=== PATIENT | female | born 1995 | race Caucasian/White ===

== ENCOUNTER 2016-09-06 23:13 | Emergency (ER) | payer OTHER ==
--- NOTE | 2016-09-06 23:28 | PDOC ---
History of Present Illness - General History Source: Patient Exam Limitations: No Limitations - History of Present Illness Initial Comments: 09/07/16 00:34 The patient is a 21-year-old female with a significant past medical history of multiple syncopal episodes and vertigo, and presents to the emergency department with dizziness and pain to the head for 3 days. She reports that the head pain is progressively worsening, localized to the back of the head and neck , and is sharp in nature. She reports a mild headache. She states that she has recently moved. She denies any trauma. The patient denies chest pain, shortness of breath, and palpitations. The patient denies fever, chills, nausea, vomit, diarrhea and constipation. The patient denies dysuria, frequency, urgency and hematuria. Allergies: penicillins Social History: Denies smoking, ETOH, or substance use. <Quin Castle - Last Filed: 09/07/16 00:34> <Tayla Sheridan - Last Filed: 09/07/16 03:45> - General Stated Complaint: DIZZINESS Time Seen by Provider: 09/06/16 23:27 Past History <Quin Castle - Last Filed: 09/07/16 00:34> - Immunization History Immunization Up to Date: Yes - Psycho/Social/Smoking Cessation Hx Anxiety: No Suicidal Ideation: No Smoking History: Never smoked Have you smoked in the past 12 months: No Hx Alcohol Use: No Drug/Substance Use Hx: No Substance Use Type: None <Tayla Sheridan - Last Filed: 09/07/16 03:45> - Past Medical History Allergies/Adverse Reactions: Allergies Allergy/AdvReac Type Severity Reaction Status Date / Time Penicillins Allergy Verified 09/06/16 23:40 Home Medications: Ambulatory Orders NK [No Known Home Medication] 08/19/15 Review of Systems - Review of Systems Able to Perform ROS?: Yes Comments:: 09/07/16 00:35 CONSTITUTIONAL: Absent: fever, chills, diaphoresis, generalized weakness, malaise, loss of appetite HEENT: Absent: rhinorrhea, nasal congestion, throat pain, throat swelling, difficulty swallowing, mouth swelling, ear pain, eye pain, visual Changes CARDIOVASCULAR: Absent: chest pain, syncope, palpitations, irregular heart rate, peripheral edema RESPIRATORY: Absent: cough, shortness of breath, dyspnea with exertion, orthopnea, wheezing, stridor, hemoptysis GASTROINTESTINAL: Absent: abdominal pain, abdominal distension, nausea, vomiting, diarrhea, constipation, melena, hematochezia GENITOURINARY: Absent: dysuria, frequency, urgency, hesitancy, hematuria, flank pain, genital pain MUSCULOSKELETAL: Absent: myalgia, arthralgia, joint swelling SKIN: Absent: rash, itching, pallor HEMATOLOGIC/IMMUNOLOGIC: Absent: easy bleeding, easy bruising, lymphadenopathy, frequent infections ENDOCRINE: Absent: unexplained weight gain, unexplained weight loss, heat intolerance, cold intolerance NEUROLOGIC: Present: (+) headache, (+) dizziness, (+) pain to the back of head and neck Absent: focal weakness or paresthesias, unsteady gait, seizure, mental status changes, bladder or bowel incontinence PSYCHIATRIC: Absent: anxiety, depression, suicidal or homicidal ideation, hallucinations. <Quin Castle - Last Filed: 09/07/16 00:34> *Physical Exam - Vital Signs Last Vital Signs Temp Pulse Resp BP Pulse Ox 98.5 F 74 18 108/64 98 09/06/16 23:40 09/06/16 23:40 09/06/16 23:40 09/06/16 23:40 09/06/16 23:40 - Physical Exam Comments: 09/07/16 00:35 GENERAL: Well developed, well nourished. Awake and alert. No acute distress. HEENT: Normocephalic, atraumatic. PERRLA, EOMI. No conjunctival pallor. Sclera are non- icteric. Moist mucous membranes. Oropharynx is clear. NECK: Supple. Full ROM. No JVD. Carotid pulses 2+ and symmetric, without bruits. No thyromegaly. No lymphadenopathy. CARDIOVASCULAR: Regular rate and rhythm. No murmurs, rubs, or gallops. Distal pulses are 2+ and symmetric. PULMONARY: No evidence of respiratory distress. Lungs clear to auscultation bilaterally. No wheezing, rales or rhonchi. ABDOMINAL: Soft. Non-tender. Non-distended. No rebound or guarding. No organomegaly. Normoactive bowel sounds. MUSCULOSKELETAL Normal range of motion at all joints. No bony deformities or tenderness. No CVA tenderness. EXTREMITIES: No cyanosis. No clubbing. No edema. No calf tenderness. SKIN: Warm and dry. Normal capillary refill. No rashes. No jaundice. NEUROLOGICAL: Alert, awake, appropriate. Cranial nerves 2-12 intact. No deficits to light touch and temperature in face, upper extremities and lower extremities. No motor deficits in the in face, upper extremities and lower extremities. Normoreflexic in the upper and lower extremities. Normal speech. Toes are down- going bilaterally. Gait is normal without ataxia. PSYCHIATRIC: Cooperative. Good eye contact. Appropriate mood and affect. <Quin Castle - Last Filed: 09/07/16 00:34> ED Treatment Course - Medications Given in the ED: ED Medications Discontinued Medications Generic Name Dose Route Start Last Admin Trade Name Freq PRN Reason Stop Dose Admin Diphenhydramine HCl 50 mg 09/06/16 23:52 09/07/16 00:21 Benadryl Injection - IVPB 09/06/16 23:53 50 mg ONCE ONE Administration Ketorolac Tromethamine 30 mg 09/06/16 23:52 09/07/16 00:21 Toradol Injection - IVPUSH 09/06/16 23:53 30 mg ONCE ONE Administration <Quin Castle - Last Filed: 09/07/16 00:34> - LABORATORY CBC & Chemistry Diagram: 09/07/16 00:15 09/07/16 00:15 <Tayla Sheridan - Last Filed: 09/07/16 03:45> Medical Decision Making - Medical Decision Making 09/07/16 03:30 ient Name: Ebony Luo THIS IS A PRELIMINARY REPORT FROM [facility] [employer] TECHNICIAN EXAM: CT head/brain without contrast IMAGES: [id number] EXAM DATE AND TIME: 2016-09-07 02:50:36.0 REASON FOR EXAM: 21 year-old woman with occipital pain. Dizziness. COMPARISON: Prior Head CT conducted on: 09/12/2015. FINDINGS: The sulci and ventricles are normal in size. There are no intracranial hemorrhages, extra-axial fluid collections or evidence of an intra-axial mass lesion. Orbital and petrous structures, cerebellopontine angles, and posterior fossa appear unremarkable. There is a mucous retention cyst within the left maxillary sinus. The paranasal and mastoid sinuses are clear. IMPRESSION: Maxillary sinus mucous retention cyst. The study is otherwise unremarkable. .THIS DOCUMENT HAS BEEN ELECTRONICALLY SIGNED Jung Reyes MD. 09/07/16 03:40 Pt understands that she may have increased CSF production and ICP which may lead to blindness and that the only way to diagnose this is with spinal tap. Pt is refusing spinal tap/LP at this time. I explained to her that if dizziness and FAYE persist, she must follow with neurology and she ught to follow through with a lumbar puncture to make sure ICP is normal. Pt wants to go home. Labs normal. CT head normal. Pt is feeling better <Tayla Sheridan - Last Filed: 09/07/16 03:45> *DC/Admit/Observation/Transfer - Attestations Scribe Attestion: 09/07/16 00:36 Documentation prepared by Quin Castle, acting as medical office receptionist assistant for Tayla Sheridan MD. <Quin Castle - Last Filed: 09/07/16 00:34> - Discharge Dispostion Admit: No <Tayla Sheridan - Last Filed: 09/07/16 03:45> Diagnosis at time of Disposition: Headache, Dizziness - Discharge Dispostion Disposition: HOME Condition at time of disposition: Improved - Referrals Referrals: Lo Colindres MD [Primary Care Provider] - Igor Coppola MD [Staff Physician] - - Patient Instructions Printed Discharge Instructions: DI for Headache, Dizziness, Nonvertigo
[2016-09-06 23:45] VITALS: BP 108/64; PULSE 74; TEMP 98.5; BMI 26.6
[2016-09-06] MEDS ORDERED: KETOROLAC TROMETHAMINE 30 MG/1 ML VIAL IVPUSH ONE (23:52)
[2016-09-07] MEDS ORDERED: KETOROLAC TROMETHAMINE 30 MG/1 ML VIAL ONE (00:14)
[2016-09-07] MEDS ORDERED: METOCLOPRAMIDE HCL INJECTION 10 MG/2 ML VIAL IVPB ONE (00:28)
[2016-09-07] MEDS ORDERED: METOCLOPRAMIDE HCL INJECTION 10 MG/2 ML VIAL ONE (00:56)
[2016-09-07 01:08] LABS: BASOPHIL 0.5 % (0-2.0); EOSINOPHIL 1.2 % (0-4.5); MCH 28.6 pg (25.7-33.7); MCHC 32.5 g/dl (32.0-36.0); MEAN PLT VOLUME 8.5 fl (7.5-11.1); NEUTROPHILS 60.3 % (42.8-82.8); PLATELET COUNT 314 K/MM3 (134-434); RDW 13.1 % (11.6-15.6); WHITE BLOOD COUNT 7.7 K/mm3 (4.0-10.0)
[2016-09-07 01:26] LABS: INR 1.08 (0.82-1.09); PROTHROMBIN TIME (PATIENT) 11.9 SEC (9.98-11.88)
[2016-09-07 01:58] LABS: URINE APPEARANCE CLOUDY; URINE BILIRUBIN NEGATIVE (NEGATIVE); URINE COLOR YELLOW; URINE GLUCOSE (UA) NEGATIVE (NEGATIVE); URINE KETONE NEGATIVE (NEGATIVE); URINE NITRITE NEGATIVE (NEGATIVE); URINE PROTEIN NEGATIVE (NEGATIVE); URINE UROBILINOGEN 2.0 E.U/dl E.U./dl (0.2-1.0)
[2016-09-07 02:00] LABS: ANION GAP 9 (8-16); CALCIUM 9.1 mg/dL (8.5-10.1); CO2 30 mmol/L (21-32); CREATININE 0.8 mg/dL (0.55-1.02); GLUCOSE,RANDOM 77 mg/dL (74-106); SGPT/ALT 44 U/L (12-78)
[2016-09-07 02:01] LABS: ALK PHOS 65 U/L (45-117); BILIRUBIN,TOTAL 0.3 mg/dL (0.2-1.0); TOT PROT 7.3 g/dl (6.4-8.2)
[2016-09-07 02:01] LABS: URINE BLOOD 1+ (NEGATIVE); URINE LEUK ESTERASE TRACE (NEGATIVE)
[2016-09-07 02:04] LABS: URINE BACTERIA RARE /hpf (NONE SEEN); URINE MUCUS MODERATE; URINE RBC 4 /hpf (0-3)
[2016-09-07 02:06] LABS: SGOT/AST 25 U/L (15-37)
== END 2016-09-07 03:58 | disposition home or self-care (01) ==
LOC: JER 23:13
PROC: 3E0333Z Introduction of Anti-inflammatory into Peripheral Vein, Percutaneous Approach (ICD-10-PCS; principal; 2016-09-06)
PROC: 3E033GC Introduction of Other Therapeutic Substance into Peripheral Vein, Percutaneous Approach (ICD-10-PCS; 2016-09-06)
DX: R51 Headache (principal); R42 Dizziness and giddiness
CPT/HCPCS: 36415; 70450-TC; 80053; 81003; 81015; 84703; 85025; 85610; 85730; 96374; 96375; 99282-25

== ENCOUNTER 2016-10-01 21:36 | Emergency (ER) | payer OTHER ==
[2016-10-01 22:03] VITALS: BP 133/61; PULSE 79; TEMP 97.9; BMI 25.8
[2016-10-01 22:18] LABS: URINE APPEARANCE CLOUDY; URINE BILIRUBIN NEGATIVE (NEGATIVE); URINE COLOR DKYELLOW; URINE GLUCOSE (UA) NEGATIVE (NEGATIVE); URINE KETONE NEGATIVE (NEGATIVE); URINE NITRITE NEGATIVE (NEGATIVE); URINE UROBILINOGEN NEGATIVE E.U./dl (0.2-1.0)
[2016-10-01 22:24] LABS: URINE BLOOD 2+ (NEGATIVE); URINE LEUK ESTERASE 3+ (NEGATIVE); URINE PROTEIN 1+ (NEGATIVE)
--- NOTE | 2016-10-01 22:24 | PDOC ---
History of Present Illness - General Chief Complaint: Urinary Problem Stated Complaint: R/O U.T.I. Time Seen by Provider: 10/01/16 21:59 History Source: Patient Exam Limitations: No Limitations - History of Present Illness Travel History: No Initial Comments: 10/01/16 22:18 21 yr female with c/o 2-3 weeks painful urination, frequency and fould smelling. no fever no flank or back pain or vomiting. Past History - Past Medical History Allergies/Adverse Reactions: Allergies Allergy/AdvReac Type Severity Reaction Status Date / Time Penicillins Allergy Verified 10/01/16 21:54 Home Medications: Ambulatory Orders Norgestimate-Ethinyl Estradiol [Sprintec 28 Day Tablet] 1 each PO DAILY Phenazopyridine HCl [Azo Urinary Pain Relief] 97.5 mg PO TID #9 tablet 10/01/16 Sulfamethoxazole/Trimethoprim [Bactrim Ds Tablet] 1 each PO BID #14 tablet 10/01 Other medical history: VERTIGO - Immunization History Immunization Up to Date: Yes - Psycho/Social/Smoking Cessation Hx Anxiety: No Suicidal Ideation: No Smoking History: Never smoked Have you smoked in the past 12 months: No Number of Cigarettes Smoked Daily: 0 Information on smoking cessation initiated: No Hx Alcohol Use: No Drug/Substance Use Hx: No Substance Use Type: None *Physical Exam - Vital Signs Last Vital Signs Temp Pulse Resp BP Pulse Ox 97.9 F 79 14 133/61 98 10/01/16 21:56 10/01/16 21:56 10/01/16 21:56 10/01/16 21:56 10/01/16 21:56 - Physical Exam General Appearance: Yes: Nourished, Appropriately Dressed HEENT: positive: EOMI, RUSSEL, TMs Normal, Pharynx Normal Neck: positive: Supple Respiratory/Chest: positive: Lungs Clear, Normal Breath Sounds Cardiovascular: positive: Regular Rhythm, Regular Rate Gastrointestinal/Abdominal: positive: Normal Bowel Sounds, Soft, Tenderness ( suprapubic). negative: Tender Musculoskeletal: positive: Normal Inspection. negative: CVA Tenderness (R), CVA Tenderness (L) Extremity: positive: Normal Inspection, Normal Range of Motion Integumentary: positive: Normal Color, Dry, Warm Neurologic: positive: Fully Oriented, Alert, Normal Mood/Affect, Normal Response , Motor Strength 5/5 Medical Decision Making - Medical Decision Making 10/01/16 22:36 cc: urinary urgency, frequency denies vaginal discharge no vomiting afebrile, neg CVA tenderness will check for UTI r/o *DC/Admit/Observation/Transfer Diagnosis at time of Disposition: UTI (urinary tract infection) Qualifiers: Urinary tract infection type: acute cystitis Hematuria presence: with hematuria Qualified Code(s): N30.01 - Acute cystitis with hematuria - Discharge Dispostion Disposition: HOME Condition at time of disposition: Good - Prescriptions Prescriptions: Phenazopyridine HCl [Azo Urinary Pain Relief] 97.5 mg PO TID #9 tablet Sulfamethoxazole/Trimethoprim [Bactrim Ds Tablet] 1 each PO BID #14 tablet - Patient Instructions Additional Instructions: drink at least 2 liters of water a day take the medication as prescribed we will call you if the urine culture is resistant to the prescribed antibiotic take the medication as prescribed return if any fever, chills, vomiting or back pain that is severe
[2016-10-01 22:25] LABS: URINE BACTERIA RARE /hpf (NONE SEEN); URINE MUCUS MANY; URINE RBC 18 /hpf (0-3); URINE WBC 1860 /hpf (3-5)
[2016-10-01] MEDS ORDERED: PHENAZOPYRIDINE HCL 100 MG TABLET (FP) PO ONE (22:34)
[2016-10-01] MEDS ORDERED: SULFAMETHOXAZOLE/TRIMETHOPRIM 800MG/160MG D.S. TABLET PO ONE (22:34)
[2016-10-01] MEDS ORDERED: SULFAMETHOXAZOLE/TRIMETHOPRIM 800MG/160MG D.S. TABLET ONE (22:39)
[2016-10-01] MEDS ORDERED: PHENAZOPYRIDINE HCL 100 MG TABLET (FP) ONE (22:39)
--- NOTE | 2016-10-07 15:59 | PDOC ---
Patient Follow-up (Call Back) - Post ED Follow - Up Chief Complaint: Urinary Problem Condition at time of discharge: Good Disposition at time of original discharge: HOME Reason for Call Back: Abnwl. Microbiology (left message) - Disposition Rx Needed: Yes (azithromycin called in to [facility] at pt request) Additional Instructions/Notes: spoke to pt she is aware of the results. I have counseled pt regarding diagnosis , treatment and follow up plan.
== END 2016-10-01 22:48 | disposition home or self-care (01) ==
LOC: JER 21:36
DX: N30.01 Acute cystitis with hematuria (principal)
CPT/HCPCS: 36415; 81003; 81015; 84703; 87086; 87186; 87491; 87591; 99281-25

== ENCOUNTER 2016-10-29 22:02 | Emergency (ER) | payer SELFPAY ==
[2016-10-29 22:32] VITALS: BP 128/71; PULSE 88; TEMP 97.8; BMI 27.4
--- NOTE | 2016-10-29 23:24 | PDOC ---
History of Present Illness - General Chief Complaint: Ingrown toenail Stated Complaint: INGROWN TOENAIL Time Seen by Provider: 10/29/16 22:41 History Source: Patient Exam Limitations: No Limitations - History of Present Illness Occurred: reports: other (2 weeks) Lower Extremity Pain Location: right: 1st toe (;pain to lat distal skin fold) Extremity Pain Location - Extremity Pain Location Extremity Pain Locations: right: 1st toe Past History - Travel Traveled outside of the country in the last 30 days: No Close contact w/someone who was outside of country & ill: No - Past Medical History Allergies/Adverse Reactions: Allergies Allergy/AdvReac Type Severity Reaction Status Date / Time Penicillins Allergy Verified 10/29/16 22:32 Home Medications: Ambulatory Orders Norgestimate-Ethinyl Estradiol [Sprintec 28 Day Tablet] 1 each PO DAILY Clindamycin [Cleocin -] 300 mg PO TID #21 capsule 10/30/16 Other medical history: vertigo - Immunization History Immunization Up to Date: Yes - Psycho/Social/Smoking Cessation Hx Anxiety: No Suicidal Ideation: No Smoking History: Never smoked Have you smoked in the past 12 months: No Number of Cigarettes Smoked Daily: 0 Information on smoking cessation initiated: No Hx Alcohol Use: No Drug/Substance Use Hx: No Substance Use Type: None Review of Systems - Review of Systems Musculoskeletal: Yes: Other (lat right great toe/red/pain) *Physical Exam - Vital Signs Last Vital Signs Temp Pulse Resp BP Pulse Ox 97.8 F 88 17 128/71 100 10/29/16 22:28 10/29/16 22:28 10/29/16 22:28 10/29/16 22:28 10/29/16 22:28 - Physical Exam Comments: 10/29/16 23:35 Right great toe +erythematous to distal lat skin fold +purulent drainage Progress Note - Progress Note Progress Note: 21-year-old female presents to the emergency department complaining of an ingrown toenail to her right great toe. Patient states she noticed redness/ swelling and slight purulent discharge to the lateral skin follow of her great toe. Patient initially wanted her ingrown toenail removed but prior to the procedure, she adamantly refused and wished to be discharged on conservative treatment. Patient denies fever, chills, extremity numbness or tingling sensation. *DC/Admit/Observation/Transfer Diagnosis at time of Disposition: Ingrown toenail - Discharge Dispostion Disposition: HOME Condition at time of disposition: Improved - Prescriptions Prescriptions: Clindamycin [Cleocin -] 300 mg PO TID #21 capsule - Referrals Referrals: Lo Colindres MD [Primary Care Provider] - Donnie Landry [Staff Physician] - - Patient Instructions Printed Discharge Instructions: DI for Ingrown Toenail Additional Instructions: Warm soaks; minimum of 4 times a day/20 minutes per session Take the antibiotics as prescribed Tylenol/Motrin as needed for pain You offered the removal of your ingrown toenail that you opts to try a conservative method which consists of antibiotics and warm soaks. Review symptoms worsen/persists or becomes severe, return to the emergency department. If you notice increased drainage, increased swelling/redness, or red streak going up your foot, your to report to the emergency department immediately.
[2016-10-29] MEDS ORDERED: CLINDAMYCIN HCL 150 MG CAPSULE (FP) PO ONE (23:49)
[2016-10-29] MEDS ORDERED: CLINDAMYCIN HCL 150 MG CAPSULE (FP) ONE (23:56)
--- NOTE | 2016-10-29 23:57 | PDOC ---
*Physical Exam - Vital Signs Last Vital Signs Temp Pulse Resp BP Pulse Ox 97.8 F 88 17 128/71 100 10/29/16 22:28 10/29/16 22:28 10/29/16 22:28 10/29/16 22:28 10/29/16 22:28 Medical Decision Making - Medical Decision Making 10/29/16 23:56 agree with care from KALEB Azar *DC/Admit/Observation/Transfer Diagnosis at time of Disposition: Ingrown toenail - Discharge Dispostion Disposition: HOME Condition at time of disposition: Improved - Prescriptions Prescriptions: Clindamycin [Cleocin -] 300 mg PO TID #21 capsule - Referrals Referrals: Donnie Landry [Staff Physician] - Lo Colindres MD [Primary Care Provider] - - Patient Instructions Printed Discharge Instructions: DI for Ingrown Toenail Additional Instructions: Warm soaks; minimum of 4 times a day/20 minutes per session Take the antibiotics as prescribed Tylenol/Motrin as needed for pain You offered the removal of your ingrown toenail that you opts to try a conservative method which consists of antibiotics and warm soaks. Review symptoms worsen/persists or becomes severe, return to the emergency department. If you notice increased drainage, increased swelling/redness, or red streak going up your foot, your to report to the emergency department immediately. - Post Discharge Activity Work/School Note: Back to Work
== END 2016-10-30 00:22 | disposition home or self-care (01) ==
LOC: JER 22:02
DX: L60.0 Ingrowing nail (principal); R42 Dizziness and giddiness
CPT/HCPCS: 87070; 87205; 99281-25

== ENCOUNTER 2016-11-16 22:03 | Observation (INO) | payer MEDICARE, OTHER ==
--- NOTE | 2016-11-17 00:34 | PDOC ---
History of Present Illness - General Chief Complaint: Ingrown toenail Stated Complaint: INGROWN TOENAIL Time Seen by Provider: 11/16/16 23:40 - History of Present Illness Initial Comments: 11/17/16 00:34 CHIEF COMPLAINT: infected toenail HISTORY OF PRESENT ILLNESS: 21 yo F with no significant PMH returns to ED with infected ingrown toenail. Patient was seen in this ED and states the provider "drained the pus from the side with a needle" but patient refused removal of ingrown toenail prior to procedure. Patient was sent home with script for Clindamycin which she has been taking for 4-5 days, and the toe has gotten worse. No recent travel or sick contacts. PAST MEDICAL HISTORY: Denies past medical history FAMILY HISTORY: Denies SOCIAL HISTORY: Denies tobacco, alcohol, illicit drug use. SURGICAL HISTORY: Denies ALLERGIES: PCN REVIEW OF SYSTEMS General/Constitutional: Denies fever or chills. HEENT: Denies change in vision. Denies ear pain or discharge. Denies sore throat. Cardiovascular: Denies chest pain or shortness of breath. Respiratory: Denies cough, wheezing, or hemoptysis. Gastrointestinal: Nausea today. Denies vomiting, diarrhea or constipation. Denies rectal bleeding. Genitourinary: Denies dysuria, frequency, or change in urination. Musculoskeletal: Pain andn swelling to R great toe s/p ingrown toenail. Denies joint or muscle swelling or pain. Denies neck or back pain. Skin and breasts: Denies rash or easy bruising. Neurologic: Denies headache, vertigo, loss of consciousness, or loss of sensation. PHYSICAL EXAM General Appearance: Well-appearing, appropriately dressed. No apparent distress. HEENT: EOMI, PERRLA. No conjunctival pallor. No photophobia, scleral icterus. Respiratory/Chest: Lungs CTAB. Cardiovascular: RRR. S1, S2. Gastrointestinal/Abdominal: Normal bowel sounds. Abdomen soft, non-distended. No tenderness or rebound tenderness. No organomegaly, pulsatile mass, guarding , hernia, hepatomegaly, splenomegaly. Lymphatic: No adenopathy, tenderness. Musculoskeletal/Extremities: Marked tenderness to medial R toe with erythema and edema, warm to touch. Normal inspection. FROM of all extremities, normal capillary refill. Pelvis Stable. No CVA tenderness. No tenderness to extremities, pedal edema, swelling, erythema or deformity. Integumentary: Appropriate color, dry, warm. No cyanosis, erythema, jaundice or rash Neurologic: sludge filtration attendant II-XII intact. Fully oriented, alert. Appropriate mood/affect. Motor strength 5/5. No appreciable EOM palsy, facial droop or sensory deficit. 11/17/16 02:41 Past History - Past Medical History Allergies/Adverse Reactions: Allergies Allergy/AdvReac Type Severity Reaction Status Date / Time Penicillins Allergy Verified 11/16/16 22:08 Home Medications: Ambulatory Orders NK [No Known Home Medication] 11/16/16 - Immunization History Immunization Up to Date: Yes - Psycho/Social/Smoking Cessation Hx Anxiety: No Suicidal Ideation: No Smoking History: Never smoked Have you smoked in the past 12 months: No Number of Cigarettes Smoked Daily: 0 Hx Alcohol Use: No Drug/Substance Use Hx: No Substance Use Type: None *Physical Exam - Vital Signs Last Vital Signs Temp Pulse Resp BP Pulse Ox 98.8 F 88 18 120/64 11/16/16 22:09 11/16/16 22:09 11/16/16 22:09 11/16/16 22:09 Procedures - Consent Consent obtained: Verbal - Incision and Drainage I&D Site: Right: Paronychia (R great toe) Betadine cleansed: Yes Anesthesia: 1% Lidocaine Volume(ml): 4 Blade Size: 11 Attempts: 1 (no drainage appreciated, patient unable to tolerate second attempt , refused and states she would rather be admitted for IV antibiotics) Dressing: Yes (xeroform dressing, tube gauze) ED Treatment Course - LABORATORY CBC & Chemistry Diagram: 11/17/16 01:40 11/17/16 01:40 Medical Decision Making - Medical Decision Making 11/17/16 02:41 21 yo F with no significant PMH returns to ED with paronychia of R great toe. Paronychia I&D attempted, patient unable to tolerate procedure. (see procedure note). Will admit for IV antibiotics due to failed outpatient treatment after taking 4- 5 days of Clindamycin with worsening pain and erythema of toe. Discussed case with hospitalist attending Boris, will admit to obs med/surg. *DC/Admit/Observation/Transfer Diagnosis at time of Disposition: Paronychia Qualifiers: Laterality: right Qualified Code(s): L03.011 - Cellulitis of right finger - Discharge Dispostion Admit: Yes - Referrals Referrals: Lo Colindres MD [Primary Care Provider] -
[2016-11-17 01:58] LABS: BASOPHIL 0.5 % (0-2.0); EOSINOPHIL 1.2 % (0-4.5); MCHC 33.7 g/dl (32.0-36.0); MEAN CELL VOLUME 88.9 fl (80-96); MEAN PLT VOLUME 7.8 fl (7.5-11.1); NEUTROPHILS 56.3 % (42.8-82.8); PLATELET COUNT 325 K/MM3 (134-434); RDW 13.7 % (11.6-15.6); WHITE BLOOD COUNT 7.1 K/mm3 (4.0-10.0)
[2016-11-17 02:29] LABS: ALBUMIN 4.1 g/dl (3.4-5.0); ALK PHOS 56 U/L (45-117); ANION GAP 10 (8-16); BILIRUBIN,TOTAL 0.3 mg/dL (0.2-1.0); CALCIUM 9.1 mg/dL (8.5-10.1); CO2 28 mmol/L (21-32); CREATININE 0.7 mg/dL (0.55-1.02); GLUCOSE,RANDOM 84 mg/dL (74-106); SGOT/AST 11 U/L (15-37); SGPT/ALT 31 U/L (12-78); TOT PROT 7.2 g/dl (6.4-8.2)
--- NOTE | 2016-11-17 03:01 | HP ---
CHIEF COMPLAINT: Pain, Swelling to R- Great Toe PCP: HISTORY OF PRESENT ILLNESS: This is a 21 y/o female with a past medical history of vertigo (no meds). Who presents to the emergency department with increased pain, swelling and redness to the R- great toe while on Clindamycin. Patient reports taking the ABX as prescribed, with 3 days left, noting increased pain with difficulty ambulating. Patient denies the use of nail salons. Patient denies fever, chills, cough, CP, AP, N/V/D, constipation. ER course was notable for: (1) (2) (3) Recent Travel: None PAST MEDICAL HISTORY: Vertigo PAST SURGICAL HISTORY: Cyst removal Right Ovary (05/2016) Social History: Smoking: Former < 5 cigarettes daily Alcohol: Occasional Drugs: Denies Lives with a friend and their family, employed [employer] worker Family History: Mom: Lung Ca Aunt: Thyroid Ca Grandmother: Seizures Allergies Penicillins Allergy (Verified 11/16/16 22:08) HOME MEDICATIONS: Home Medications Medication Instructions Recorded NK [No Known Home Medication] 11/16/16 REVIEW OF SYSTEMS CONSTITUTIONAL: Absent: fever, chills, diaphoresis, generalized weakness, malaise, loss of appetite, weight change HEENT: Absent: rhinorrhea, nasal congestion, throat pain, throat swelling, difficulty swallowing, mouth swelling, ear pain, eye pain, visual changes CARDIOVASCULAR: Absent: chest pain, syncope, palpitations, irregular heart rate, lightheadedness , peripheral edema RESPIRATORY: Absent: cough, shortness of breath, dyspnea with exertion, orthopnea, wheezing, stridor, hemoptysis GASTROINTESTINAL: Absent: abdominal pain, abdominal distension, nausea, vomiting, diarrhea, constipation, melena, hematochezia GENITOURINARY: Absent: dysuria, frequency, urgency, hesitancy, hematuria, flank pain, genital pain MUSCULOSKELETAL: right great toe pain Absent: myalgia, arthralgia, joint swelling, back pain, neck pain SKIN: swelling, redness to right lateral great toe Absent: rash, itching, pallor HEMATOLOGIC/IMMUNOLOGIC: Absent: easy bleeding, easy bruising, lymphadenopathy, frequent infections ENDOCRINE: Absent: unexplained weight gain, unexplained weight loss, heat intolerance, cold intolerance NEUROLOGIC: Absent: headache, focal weakness or paresthesias, dizziness, unsteady gait, seizure, mental status changes, bladder or bowel incontinence PSYCHIATRIC: Absent: anxiety, depression, suicidal or homicidal ideation, hallucinations. PHYSICAL EXAMINATION Vital Signs - 24 hr 11/16/16 11/17/16 22:09 02:33 Temperature 98.8 F Pulse Rate 88 Respiratory 18 Rate Blood Pressure 120/64 O2 Sat by Pulse 99 Oximetry (%) GENERAL: Awake, alert, and fully oriented, in no acute distress. HEAD: Normal with no signs of trauma. EYES: Pupils equal, round and reactive to light, extraocular movements intact, sclera anicteric, conjunctiva clear. No lid lag. EARS, NOSE, THROAT: Ears normal, nares patent, oropharynx clear without exudates. Moist mucous membranes. NECK: Normal range of motion, supple without lymphadenopathy, JVD, or masses. LUNGS: Breath sounds equal, clear to auscultation bilaterally. No wheezes, and no crackles. No accessory muscle use. HEART: Regular rate and rhythm, normal S1 and S2 without murmur, rub or gallop. ABDOMEN: Soft, nontender, not distended, normoactive bowel sounds, no guarding, no rebound, no masses. No hepatomegaly or splenomegaly. MUSCULOSKELETAL: Normal range of motion at all joints. No bony deformities or tenderness. No CVA tenderness. UPPER EXTREMITIES: 2+ pulses, warm, well-perfused. No cyanosis. No clubbing. No peripheral edema. LOWER EXTREMITIES: 2+ pulses, warm, well-perfused. No calf tenderness. No peripheral edema. NEUROLOGICAL: Cranial nerves II-XII intact. Normal speech. Normal gait. PSYCHIATRIC: Cooperative. Good eye contact. Appropriate mood and affect. SKIN: Warm, dry, normal turgor, no rashes or +erythema, swelling, to right lateral great toe noted, normal capillary refill. Laboratory Results - last 24 hr 11/17/16 11/17/16 11/17/16 01:40 01:40 01:40 WBC 7.1 RBC 4.16 Hgb 12.5 Hct 37.0 MCV 88.9 MCHC 33.7 RDW 13.7 Plt Count 325 MPV 7.8 Neutrophils % 56.3 Lymphocytes % 31.2 D Monocytes % 10.8 H Eosinophils % 1.2 Basophils % 0.5 Sodium 142 Potassium 3.7 Chloride 104 Carbon Dioxide 28 Anion Gap 10 BUN 17 Creatinine 0.7 Creat Clearance w eGFR > 60 Random Glucose 84 Calcium 9.1 Total Bilirubin 0.3 AST 11 L D ALT 31 D Alkaline Phosphatase 56 Total Protein 7.2 Albumin 4.1 Serum , Qual Negative ASSESSMENT/PLAN: This is a 21 y/o female with a PMHx of Vertigo. Presents to the ED with increased pain swelling to right great toe, while o ABX. Placed on observation for Failed Out Patient Therapy, needing IV antibiotics for R- Great Toe Nail Infection for further evaluation of their emergent condition. Plan: 1. R- Great Toe Infection - Likely secondary to ingrown nail - Failed Out Patient Therapy - Given Clindamycin 600mg IV - Consider Delvance IV, with ID approval - Elevate - Warm Compresses - Topical mupirocin - Tylenol prn - CBC, BMP 11/18 2. Vertigo - Stable - Continue to monitor 2. FEN - Tolerates PO fluids - Monitor lytes - Regular Diet 3. DVT Prophylaxis - OOB Code Status: Full Code Problem List - Problem (1) Paronychia Code(s): L03.019 - CELLULITIS OF UNSPECIFIED FINGER Qualifiers: Laterality: right Qualified Code(s): L03.011 - Cellulitis of right finger (2) Ingrown toenail Code(s): L60.0 - INGROWING NAIL (3) DVT prophylaxis Code(s): LPP8676 - Visit type - Emergency Visit Emergency Visit: Yes Care time: The patient presented to the Emergency Department on the above date and was hospitalized for further evaluation of their emergent condition. - New Patient This patient is new to me today: Yes Date on this admission: 11/17/16 - Critical Care Critical Care patient: No
[2016-11-17] MEDS ORDERED: ACETAMINOPHEN 325 MG TABLET (FP) PO PRN (03:27)
[2016-11-17] MEDS ORDERED: CLINDAMYCIN 600MG PREMIX IVPB 50 ML IVPB ONE (03:31)
[2016-11-17 06:03] VITALS: TEMP 97.9
[2016-11-17] MEDS ORDERED: LIDOCAINE HCL 2% (20ML MULTI-DOSE VIAL) NR ONE (15:50)
[2016-11-17] MEDS ORDERED: BACITRACIN 0.9 GM PACKET ONE (16:33)
--- NOTE | 2016-11-17 16:57 | CONSULT ---
Consult - text type - Consultation Consultation Note: Podiatry Consultation: 21 year old healthy F presents to the ED with ingrown toenail on the R great toe and "infection". Patient was placed on short course oral abx and no improvement to the tenderness to the ingrown nail. Yesterday evening, and attempt was made at incision and drainage under local anesthesia, however no purulence expressed. She still complains of pain. She denies F/V/N/C/SOB/CP. She denies seeing drainage from the site in the past. PMHx: vertigo Meds: none PSHx: ovarian cyst removal ALL: PCN WIL: R foot: pedal pulses palpable, TG wnl, CFT brisk to all toes bilaterally. There is an incurvated nail at the lateral nail fold of the right great toe. There is localized swelling and erythema to the lateral nail fold. On palpation there is significant tenderness on palpation. There is no purulent drainage, no fluctuance, no streaking cellulitis, no signs of active infection. WBC: 7.1 Imp: 21 year old F with paronychia of the right great toe secondary to ingrown nail Risks, benefits, alternatives to procedure discussed with patient. She opted to have procedure performed on ingrown toe nail and verbal consent obtained. Local anesthesia was achieved with 3 CCs of 2% lidocaine plain. The ingrown portion of nail was resected from the lateral nail fold, upon inspection of the nail fold there was no purulent drainage expressed. Topical bacitracin and a dry sterile dressing was applied to the right great toe. Local wound care was explained to the patient, as well as soaking instructions. I recommend continuing PO clindamycin x 5 days. I instructed patient to contact the ED for any signs/symptoms of worsening infection. She may follow up for a check up next 11/24/16 in the [facility] [phone]. No need for admission. Thanks for the consult. Ashly Merritt DPM
--- NOTE | 2016-11-17 17:05 | DS ---
Physical Exam: SUBJECTIVE: Patient seen and examined in ED. She is in pain and says she did bang her toe a few times. Denies fever, chills, cough. OBJECTIVE: Vital Signs Period Temp Pulse Resp BP Sys/Calle Pulse Ox Last 24 Hr 97.9 F-97.9 F 65-82 19-20 106-118/66-70 98-98 PE Neuro: alert, awake, cn 2-12intact Pulm: CTAB CV: s1 s2 rrr no mrg Abd: s nt nd +bs Ext: R great toe erythema, lateral swelling, indurated + tenderness, no streaking, no pedal swelling, + pedal pulse Laboratory Results - last 24 hr 11/17/16 13:12 Urine HCG, Qual Negative HOSPITAL COURSE: Date of Admission:11/17/16 Date of Discharge: 11/17/16 Minutes to complete discharge: 35 Discharge Summary Reason For Visit: PARONYCHIA Current Active Problems DVT prophylaxis (Acute) Paronychia (Acute) Hospital Course: Initial Hospital Course: Briefly, this 21 year old female with PMHx of vertigo (no meds) presented to the ED with increased pain, swelling and redness to the R- great toe while on Clindamycin. Patient reports taking the ABX as prescribed, with 3 days left, noting increased pain with difficulty ambulating. Patient denies the use of nail salons. ED course: Attempt to I&D noted no purulent drainage. Continued pain. Hospital Course: - Seen by podiatry pt had a incurvated nail at lateral nail fold of right great toe. 1. Paronychia of right great toe 2/2 ingrown nail - Nail was resected no purulent drainage noted - Home with soaking instructions, f/u in wound care on 11/24 - Additionally abx clinda 300mg tid x5 days - D/w Podiatry Dispo: - Home with abx and f/u wound care appt - Pt aware and agrees to above plan Condition: Stable - Instructions Diet, Activity, Other Instructions: Please return to the ED for any new, persistent, or worsening symptoms. follow up with your PCP in 1 week Next Wednesday with Dr. Heath in wound care on 5s for follow up Take additional 5 days of antibiotics Referrals: Lo Colindres MD [Primary Care Provider] - Shubham Merritt MD [Staff Physician] - Disposition: HOME - Home Medications Comprehensive Discharge Medication List: Ambulatory Orders Clindamycin [Cleocin -] 300 mg PO TID #15 capsule 11/17/16 This patient is new to me today: Yes Date on this admission: 11/18/16 Emergency Visit: Yes ED Registration Date: 11/17/16 Care time: The patient presented to the Emergency Department on the above date and was hospitalized for further evaluation of their emergent condition. Critical Care patient: No - Discharge Referral Referred to [facility] No
[2016-11-17 17:50] VITALS: BP 127/83; PULSE 90; BMI 32.1
== END 2016-11-17 17:21 | disposition home or self-care (01) ==
LOC: JER 22:03 → JERBED 11-17 02:39
PROVIDERS: ADMIT Internal Medicine; ATTEND Nurse Practitioner Acute Care
PROC: 0HBRXZZ Excision of Toe Nail, External Approach (ICD-10-PCS; principal; 2016-11-17)
PROC: 0H9RXZZ Drainage of Toe Nail, External Approach (ICD-10-PCS; 2016-11-17)
DX: L03.031 Cellulitis of right toe (principal); Z87.891 Personal history of nicotine dependence; L60.0 Ingrowing nail
CPT/HCPCS: 36415; 80053; 84703; 85025; 99283-25; G0378